=== PATIENT | male | born 1935 | race Caucasian/White ===

== ENCOUNTER 2020-07-19 09:40 | Emergency (ER) | payer MEDICARE, BC ==
[~2020-07-19] VITALS: Ht 172.7 cm; Wt 81.6 kg
[~2020-07-19 09:40] MED LIST: BUME2TAB7 PO; CALC-838 PO; CARV25TA PO; CYAN500T66 GT; DENO60DI SQ; DOXA4TAB2 PO; FEBU40TA PO; OLME40TA12 PO; PRAV20TA4 PO; WARF2TAB57 PO
--- NOTE | 2020-07-19 09:50 | NUR ---
dermabond applied on r 4th digit. wound care done,
[2020-07-19] MEDS ORDERED: TDAP [DIPH/PERTUSSIS/TET] 0.5 ML VIAL IM ONE ×2 (10:30→10:50)
[2020-07-19 10:57] VITALS: BP 133/88
== END 2020-07-19 10:59 | disposition home or self-care (01) ==
LOC: ER 09:48
DX: S61.214A Laceration without foreign body of right ring finger without damage to nail, initial encounter (principal); I10 Essential (primary) hypertension; I48.91 Unspecified atrial fibrillation; Z79.84 Long term (current) use of oral hypoglycemic drugs; Z79.899 Other long term (current) drug therapy; W26.8XXA Contact with other sharp object(s), not elsewhere classified, initial encounter; Y93.89 Activity, other specified; Y92.89 Other specified places as the place of occurrence of the external cause; Y99.8 Other external cause status
CPT/HCPCS: 12001; 90471; 90715; 99283; A6403

== ENCOUNTER 2022-06-19 16:48 | Emergency (ER) | payer MEDICARE, BC ==
[~2022-06-19] VITALS: Ht 172.7 cm; Wt 80.7 kg
[~2022-06-19 16:48] MED LIST changes: +CYAN500T64 GT; -CYAN500T66 GT
[2022-06-19 17:09] VITALS: BP 134/71
--- NOTE | 2022-06-19 18:17 | NUR ---
Patient left without being seen by ER Physician
== END 2022-06-19 18:18 | disposition left against medical advice (07) ==
LOC: ER 16:48
DX: R05.9 Cough, unspecified (principal); Z53.21 Procedure and treatment not carried out due to patient leaving prior to being seen by health care provider

== ENCOUNTER 2025-02-17 17:11 | Emergency (ER) | payer MEDICARE, BC ==
[~2025-02-17] VITALS: Ht 175.3 cm; Wt 74.8 kg
[2025-02-17 19:25] LABS: PLATELET COUNT (AUTO) 167 K/uL (150-450); RED BLOOD CELL COUNT(AUTO) 4.07 MIL/uL (4.5-6.0); RED CELL DISTRIBUTION WIDTH 13.8 % (11.5-15.0); WHITE BLOOD COUNT (AUTO) 7.6 K/uL (4.3-11.0)
[2025-02-17] MEDS ORDERED: ONDANSETRON HCL/PF 4 MG/2 ML VIAL ONE (19:27)
[2025-02-17] MEDS: ONDANSETRON HCL/PF 4 MG/2 ML VIAL IVP ONE (19:30)
[2025-02-17] MEDS: IV NS 0.9% 1,000 ML BAG IV ONE (19:30)
[2025-02-17 19:31] LABS: CALCIUM, SERUM 9.8 mg/dL (8.5-10.1); CREATININE 2.3 mg/dL (0.6-1.3); SODIUM SERUM 138 mmol/L (136-145); UREA NITROGEN, BLOOD 66 mg/dL (7-18)
[2025-02-17 19:40] LABS: ASPARTATE AMINOTRANSFERASE 18 U/L (15-37); TOTAL PROTEIN, SERUM 7.4 g/dL (6.4-8.2)
[2025-02-17 20:59] VITALS: BP 130/68; TEMP 97.4; O2SAT 96
== END 2025-02-17 20:59 | disposition home or self-care (01) ==
LOC: ER 17:14
DX: R10.11 Right upper quadrant pain (principal); K76.9 Liver disease, unspecified; R07.9 Chest pain, unspecified; D64.9 Anemia, unspecified; E86.0 Dehydration; I10 Essential (primary) hypertension; N40.0 Benign prostatic hyperplasia without lower urinary tract symptoms; Z79.01 Long term (current) use of anticoagulants; Z79.899 Other long term (current) drug therapy; Z90.49 Acquired absence of other specified parts of digestive tract; Z86.79 Personal history of other diseases of the circulatory system; Z60.2 Problems related to living alone
CPT/HCPCS: 99285; 74176; 96374; 71045; 96361; 93005; 85025; 80048; 83690; 80076; 36415; J2405; J7030